=== PATIENT | female | born 1985 | race Caucasian/White ===

== ENCOUNTER → 2016-11-17 | Outpatient (CLI) | payer BC ==
[~2016-11-17] MED LIST: AZEL15GE TOP; BCPILLS PO; FLUO20CA35 PO; LEVO75TA PO; SULF5LOT2 TOP; TRIA3AER NAE
== END | disposition home or self-care (01) ==
LOC: C.LABSPEC 13:26
PROVIDERS: ATTEND Obstetrics & Gynecology
DX: B37.3 Candidiasis of vulva and vagina (principal)

== ENCOUNTER → 2016-11-24 | Outpatient (CLI) | payer BC | END | disposition home or self-care (01) | LOC: C.LAB1850 17:04 | PROVIDERS: ATTEND Obstetrics & Gynecology | DX: E03.9 Hypothyroidism, unspecified (principal) ==

== ENCOUNTER → 2016-11-24 | Outpatient (CLI) | payer BC | END | disposition home or self-care (01) | LOC: C.PAPS 12:17 | PROVIDERS: ATTEND Obstetrics & Gynecology | DX: Z01.419 Encounter for gynecological examination (general) (routine) without abnormal findings (principal) ==

== ENCOUNTER → 2017-03-28 | Outpatient (CLI) | payer BC ==
[2017-03-28 17:54] LABS: BLOOD UREA NITROGEN 13 mg/dl (7-18); BUN/CREATININE RATIO 20.3 (10-20); CALCIUM 9.2 mg/dl (8.5-10.1); CARBON DIOXIDE 28 mmol/L (21-32); CHLORIDE 106 mmol/L (98-107); CREATININE 0.64 mg/dl (0.60-1.20); GLUCOSE 83 mg/dl (70-99); POTASSIUM 3.8 mmol/L (3.5-5.1); SODIUM 139 mmol/L (136-145)
== END | disposition home or self-care (01) ==
LOC: C.LAB1850 16:11
PROVIDERS: ATTEND Internal Medicine
DX: E03.9 Hypothyroidism, unspecified (principal); L70.9 Acne, unspecified

== ENCOUNTER → 2017-05-29 | Outpatient (CLI) | payer BC ==
--- NOTE | 2017-05-29 17:42 | DIAGNOSTIC IMAGING REPORT ---
CHEST 2 VIEWS ROUTINE CLINICAL HISTORY: 32 years-old Female presenting with fever, shortness of breath, 6 weeks . TECHNIQUE: PA and lateral views of the chest were obtained. COMPARISON: 01/20/2014. FINDINGS: Cardiomediastinal silhouette normal. Lungs and pleural spaces clear. Osseous structures normal. Upper abdomen normal. IMPRESSION: 1. No acute cardiopulmonary disease. Electronically signed by: Alfredito Escobar M.D. 05/29/2017 5:41 PM Dictated Date/Time: 05/29/2017 5:40 PM
== END | disposition home or self-care (01) ==
LOC: C.RAD1850 16:37
PROVIDERS: ATTEND Internal Medicine
DX: O99.511 Diseases of the respiratory system complicating pregnancy, first trimester (principal); R06.02 Shortness of breath; R50.9 Fever, unspecified

== ENCOUNTER 2017-05-30 19:39 | Emergency (ER) | payer BC ==
[~2017-05-30] VITALS: Ht 152.4 cm; Wt 57.0 kg
[~2017-05-30 19:39] MED LIST changes: -FLUO20CA35 PO
[2017-05-30 19:43] VITALS: Ht 152.4 cm; Wt 57.0 kg
[2017-05-30] MEDS ORDERED: FLUO20CA35 PO (20:09)
[2017-05-30] MEDS ORDERED: DiphenhydrAMINE HCL 50 MG/ML VIAL IV STA (20:10)
[2017-05-30] MEDS ORDERED: SODIUM CHLORIDE 0.9% 1000ML 1,000 ML IV STA ×2 (20:10→21:48)
[2017-05-30] MEDS ORDERED: METOCLOPRAMIDE HCL INJ 5 MG/ML 2 ML VIAL IV STA (20:10)
[2017-05-30 20:56] LABS: BASO % 0.2 %; BASO ABS # 0.01 K/uL (0-0.2); COMPLETE YES; HEMATOCRIT 36.9 % (37-47); IG% 0.2 %; LYMPH % 10.6 %; LYMPH ABS # 0.66 K/uL (1.2-3.4); MEAN CELL VOLUME 91.8 fL (80-100); MEAN CORPUSCULAR HEMOGLOBIN 32.6 pg (25-34); MEAN CORPUSCULAR HGB CONC 35.5 g/dl (32-36); MEAN PLATELET VOLUME 9.5 fL (7.4-10.4); MONO % 7.4 %; NEUT % 81.6 %; PLATELET COUNT 246 K/uL (130-400); RED BLOOD COUNT 4.02 M/uL (4.2-5.4); WHITE BLOOD COUNT 6.24 K/uL (4.8-10.8)
--- NOTE | 2017-05-30 21:01 | EMERGENCY ROOM VISIT NOTE ---
History Report prepared by Ernesto: Filiberto Nolasco Under the Supervision of: Dr. Jana Martino D.O. First contact with patient: 19:47 Chief Complaint: HEADACHE Stated Complaint: PEÑA,CILLS,FEVER,DIZINESS,WEAK,FATIGUE,ACHES History of Present Illness The patient is a 32 year old female who presents to the Emergency Room with complaints of a constant, frontal, headache beginning four days ago. The patient states that she worked a seven day stretch last week and just found out that she is with her first child. She reports that she thought the symptoms were from the . The patient notes that she has a history of migraines in the same location of her current headache that typically end with vomiting. She states that she typically takes Advil and drinks diet coke, but she is not able to because she is . The patient reports that she developed a subjective fever over the weekend, and when she took her temperature yesterday, it was 101.7 degrees F. She notes that she has also been experiencing chills and hot flashes that have caused her to be nauseous and fatigued. The patient reports that she has also experienced weakness, muscle aches, dizziness, shortness of breath, and a productive cough. The patient states that she was evaluated yesterday and was told that her chest x-ray and flu swab were negative. She reports that she was placed on a Z-pack and amoxicillin for possible bronchitis. The patient notes that she has been trying to drink smoothies, water, and willie wong. She states that she abruptly stopped taking Zyrtec D when she found out she was . The patient reports that she does not know if this caused her symptoms. She notes that she worked at [employer] and everyone is sick. The patient denies vaginal discharge, changes in urine, changes in stool, rashes, and vomiting. Source of History: patient Onset: four days ago Position: head (frontal) Quality: ache Timing: constant Associated Symptoms: + chills, + cough, + SOB, + nausea, + fatigue, + weakness, No vomiting, No rash Note: Associated symptoms: hot flashes, muscle aches, dizziness Denies: vaginal discharge, changes in urine, changes in stool Review of Systems See HPI for pertinent positives & negatives. A total of 10 systems reviewed and were otherwise negative. Past Medical & Surgical Medical Problems: (1) Hypothyroidism Nos (2) IBS (irritable bowel syndrome) (3) Seasonal allergies Family History Patient reports no known family medical history. Social History Smoking Status: Never Smoker Alcohol Use: occasionally Marital Status: Housing Status: lives with family Occupation Status: employed Current/Historical Medications Scheduled Fluoxetine (Prozac), 20 MG PO QAM Levothyroxine Sodium (Synthroid), 75 MCG PO DAILY Allergies Coded Allergies: No Known Allergies (Unverified , 05/30/17) Physical Exam Vital Signs Date Time Temp Pulse Resp B/P (MAP) Pulse Ox O2 Delivery O2 Flow Rate FiO2 05/30/17 22:43 37.8 84 16 100/62 98 Room Air 05/30/17 21:44 38.2 71 18 94/50 98 Room Air 05/30/17 19:43 39.3 96 18 119/76 97 Room Air Physical Exam GENERAL: alert, anxious appearing, well nourished, no distress, non-toxic EYE EXAM: normal conjunctiva, PERRL and EOM's grossly intact OROPHARYNX: no exudate, no erythema, lips, buccal mucosa, and tongue normal and mucous membranes are moist NECK: supple, no nuchal rigidity, no adenopathy, non-tender LUNGS: Clear to auscultation. Normal chest wall mechanics HEART: no murmurs, S1 normal and S2 normal ABDOMEN: abdomen soft, non-tender, normo-active bowel sounds, no masses, no rebound or guarding. BACK: Back is symmetrical on inspection and there is no deformity, no midline tenderness, no CVA tenderness. SKIN: no rashes and no bruising UPPER EXTREMITIES: upper extremities are grossly normal. LOWER EXTREMITIES: No pitting edema. NEURO EXAM: Normal sensorium, cranial nerves II-XII grossly intact, normal speech, no gross weakness of arms, no gross weakness of legs. Medical Decision & Procedures Laboratory Results 05/30/17 20:25 Red Blood Count 4.02, Mean Corpuscular Volume 91.8, Mean Corpuscular Hemoglobin 32.6, Mean Corpuscular Hemoglobin Concent 35.5, Mean Platelet Volume 9.5, Neutrophils (%) (Auto) 81.6, Lymphocytes (%) (Auto) 10.6, Monocytes (%) (Auto) 7.4, Eosinophils (%) (Auto) 0.0, Basophils (%) (Auto) 0.2, Neutrophils # (Auto) 5.10, Lymphocytes # (Auto) 0.66, Monocytes # (Auto) 0.46, Eosinophils # (Auto) 0.00, Basophils # (Auto) 0.01 05/30/17 20:25 Test 05/30/17 20:25 05/30/17 22:35 White Blood Count 6.24 K/uL (4.8-10.8) Red Blood Count 4.02 M/uL (4.2-5.4) Hemoglobin 13.1 g/dL (12.0-16.0) Hematocrit 36.9 % (37-47) Mean Corpuscular Volume 91.8 fL (80-100) Mean Corpuscular Hemoglobin 32.6 pg (25-34) Mean Corpuscular Hemoglobin Concent 35.5 g/dl (32-36) Platelet Count 246 K/uL (130-400) Mean Platelet Volume 9.5 fL (7.4-10.4) Neutrophils (%) (Auto) 81.6 % Lymphocytes (%) (Auto) 10.6 % Monocytes (%) (Auto) 7.4 % Eosinophils (%) (Auto) 0.0 % Basophils (%) (Auto) 0.2 % Neutrophils # (Auto) 5.10 K/uL (1.4-6.5) Lymphocytes # (Auto) 0.66 K/uL (1.2-3.4) Monocytes # (Auto) 0.46 K/uL (0.11-0.59) Eosinophils # (Auto) 0.00 K/uL (0-0.5) Basophils # (Auto) 0.01 K/uL (0-0.2) RDW Standard Deviation 43.4 fL (36.4-46.3) RDW Coefficient of Variation 12.9 % (11.5-14.5) Immature Granulocyte % (Auto) 0.2 % Immature Granulocyte # (Auto) 0.01 K/uL (0.00-0.02) Anion Gap 8.0 mmol/L (3-11) Est Creatinine Clear Calc Drug Dose 105.5 ml/min Estimated GFR () 138.8 Estimated GFR (Non- 119.8 BUN/Creatinine Ratio 13.2 (10-20) Calcium Level 8.5 mg/dl (8.5-10.1) Magnesium Level 2.3 mg/dl (1.8-2.4) Total Bilirubin 0.6 mg/dl (0.2-1) Aspartate Amino Transf (AST/SGOT) 23 U/L (15-37) Alanine Aminotransferase (ALT/SGPT) 26 U/L (12-78) Alkaline Phosphatase 60 U/L (45-117) Total Protein 7.1 gm/dl (6.4-8.2) Albumin 3.4 gm/dl (3.4-5.0) Globulin 3.7 gm/dl (2.5-4.0) Albumin/Globulin Ratio 0.9 (0.9-2) Human Chorionic Gonadotropin, Quant 5029 mIU/mL Urine Color YELLOW Urine Appearance CLEAR (CLEAR) Urine pH 6.5 (4.5-7.5) Urine Specific [place] 1.032 (1.000-1.030) Urine Protein 1+ (NEG) Urine Glucose (UA) NEG (NEG) Urine Ketones 1+ (NEG) Urine Occult Blood NEG (NEG) Urine Nitrite NEG (NEG) Urine Bilirubin NEG (NEG) Urine Urobilinogen NEG (NEG) Urine Leukocyte Esterase NEG (NEG) Urine WBC (Auto) 1-5 /hpf (0-5) Urine RBC (Auto) 0-4 /hpf (0-4) Urine Hyaline Casts (Auto) 1-5 /lpf (0-5) Urine Epithelial Cells (Auto) >30 /lpf (0-5) Urine Bacteria (Auto) NEG (NEG) Laboratory results per my review. Medications Administered Medications (Trade) Dose Ordered Sig/Binta Route Start Time Stop Time Status Last Admin Dose Admin Sodium Chloride 1,000 ml @ 999 mls/hr Q1H1M STAT IV 05/30/17 20:10 05/30/17 21:10 DC 05/30/17 20:31 999 MLS/HR Metoclopramide HCl (Reglan Inj) 10 mg NOW STAT IV 05/30/17 20:10 05/30/17 20:12 DC 05/30/17 20:28 10 MG Diphenhydramine HCl (Benadryl Inj) 12.5 mg NOW STAT IV 05/30/17 20:10 05/30/17 20:12 DC 05/30/17 20:29 12.5 MG Acetaminophen (Tylenol Tab) 1,000 mg STK-MED ONCE PO 05/30/17 21:43 05/30/17 21:44 DC 05/30/17 21:50 1,000 MG ED Course 1954: The patient was evaluated in room C11B. A complete history and physical exam was performed. 2009: Ordered Diphenhydramine HCl 12.5mg IV, Metoclopramide HCl 10mg IV, Sodium Chloride 1000 ml @ 999 mls/hr IV 2119: I reevaluated the patient and updated her of her exam findings. She just received her medication. 2142: Ordered Acetaminophen 1000mg PO 2146: Bedside abdominal ultrasound showed: thickened uterus, questionable gestational sack. I discussed with the patient an optional formal ultrasound and possibly transvaginal ultrasound. She declined and wishes to follow up with [facility]. 2147: Ordered Sodium Chloride 1000 ml @ 999 mls/hr IV 2246: Upon reevaluation, the patient is feeling better. I offered to perform an LP to rule out meningitis. She declined. I discussed symptoms to look for and return if present. I discussed the need for hydration, vitamins, and a close follow up with [facility]. I also discussed what medications can and cannot be used during . All other questions were answered at bedside. I discussed the findings and the treatment plan with the patient. She verbalizes agreement and understanding. The patient was discharged home. Medical Decision Differential Diagnosis includes but is not limited to headache, tension headache , cluster headache, migraine, subarachnoid hemorrhage, meningitis, mass, central venous thrombus, concussion, trauma and epidural/subdural hemorrhage. Pt well appearing here despite complaints, and felt improved after meds and began asking to go home. Discussed ddx. Likely viral illness and dehydration led to worsening migraine and pt now unable to take NSAIDS due to . Pt with no other focal neuro symptoms. Labs reassuring. Discussed risk of meningitis given presentation and offered LP, pt declined. Discussed close f/u , sx to return for, she verbalized understanding and was agreeable with plan. Discussed vitamins, hydration, safe OTC meds in . Doubt cvs thrombus. Pt had outpt cxr and flu swab which she stated was were reported to her as negative. Pt deferred US here to confirm IUP, no sx at this time to suggest occult ob problem. Discussed cannot r/o ectopic, she verbalized understanding. Medication Reconcilliation Current Medication List: was personally reviewed by me Blood Pressure Screening Patient's blood pressure: Normal blood pressure Impression Primary Impression: Fever Additional Impressions: Myalgia Headache Scribe Attestation The scribe's documentation has been prepared under my direction and personally reviewed by me in its entirety. I confirm that the note above accurately reflects all work, treatment, procedures, and medical decision making performed by me. Departure Information Dispostion Home / Self-Care Referrals RV. Carter MD (PCP) Forms HOME CARE DOCUMENTATION FORM, IMPORTANT VISIT INFORMATION Patient Instructions My [facility] Additional Instructions Please use Tylenol as needed for headache and try to stay well-hydrated. Please follow up with [facility] as soon as possible. Please continue the antibiotics were previously prescribed. If you have any worsening fevers, worsening headache, vomiting, abdominal pain, vaginal discharge or bleeding, or you've any other new concerns please return to ER immediately. Problem Qualifiers Primary Impression: Fever Fever type: unspecified Qualified Codes: R50.9 - Fever, unspecified Additional Impressions: Weeks of gestation: less than 8 weeks Qualified Codes: Z3A.01 - Less than 8 weeks gestation of Headache Headache type: unspecified Headache chronicity pattern: episodic headache Intractability: not intractable Qualified Codes: R51 - Headache
[2017-05-30 21:07] LABS: BUN/CREATININE RATIO 13.2 (10-20); CALCIUM 8.5 mg/dl (8.5-10.1); CREATININE 0.6 mg/dl (0.60-1.20); MAGNESIUM 2.3 mg/dl (1.8-2.4); POTASSIUM 3.3 mmol/L (3.5-5.1)
[2017-05-30 21:10] LABS: ALB/GLOB RATIO 0.9 (0.9-2)
[2017-05-30] MEDS ORDERED: ACETAMINOPHEN 500 MG TAB PO ONE (21:43)
[2017-05-30 22:43] VITALS: BP 100/62; PULSE 84; TEMP 37.8; O2SAT 98
[2017-05-30 23:10] LABS: URINE APPEARANCE CLEAR (CLEAR); URINE BILIRUBIN NEG (NEG); URINE COLOR YELLOW; URINE EPITHELIAL CELL AUTO >30 /lpf (0-5); URINE NITRITE NEG (NEG); URINE PH 6.5 (4.5-7.5); URINE SPECIFIC GRAVITY 1.032 (1.000-1.030); UROBILINOGEN NEG (NEG); ZZUR CULT IF INDIC CLEAN CATCH NO
[2017-05-30 23:11] LABS: MANUAL MICROSCOPIC REQUIRED? NO; REVIEW REQ? NO
== END 2017-05-30 23:10 | disposition home or self-care (01) ==
LOC: C.EDB 19:40 → C.EDC 23:10
DX: O26.891 Other specified pregnancy related conditions, first trimester (principal); O99.281 Endocrine, nutritional and metabolic diseases complicating pregnancy, first trimester; O99.611 Diseases of the digestive system complicating pregnancy, first trimester; O99.511 Diseases of the respiratory system complicating pregnancy, first trimester; Z3A.01 Less than 8 weeks gestation of pregnancy; R50.9 Fever, unspecified; R51 Headache; M79.1 Myalgia; E03.9 Hypothyroidism, unspecified; K58.9 Irritable bowel syndrome, unspecified; J30.2 Other seasonal allergic rhinitis; Z79.899 Other long term (current) drug therapy

== ENCOUNTER → 2017-06-21 | Outpatient (CLI) | payer BC ==
[~2017-06-21] MED LIST changes: -AZEL15GE TOP; -BCPILLS PO; +FLUO20CA35 PO; -SULF5LOT2 TOP; -TRIA3AER NAE
[2017-06-21 11:21] LABS: URINE APPEARANCE CLEAR (CLEAR); URINE BILIRUBIN NEG (NEG); URINE COLOR YELLOW; URINE NITRITE NEG (NEG); URINE PH 7.5 (4.5-7.5); URINE SPECIFIC GRAVITY 1.013 (1.000-1.030); UROBILINOGEN NEG (NEG)
[2017-06-21 11:26] LABS: MANUAL MICROSCOPIC REQUIRED? NO; REVIEW REQ? NO
== END | disposition home or self-care (01) ==
LOC: C.LABSPEC 10:53
PROVIDERS: ATTEND Obstetrics & Gynecology
DX: O99.281 Endocrine, nutritional and metabolic diseases complicating pregnancy, first trimester (principal)

== ENCOUNTER → 2017-06-27 | Outpatient (CLI) | payer BC ==
[2017-06-27 17:43] LABS: BASO % 0.5 %; BASO ABS # 0.04 K/uL (0-0.2); COMPLETE YES; EOS % 4.4 %; IG% 0.1 %; LYMPH % 29.4 %; LYMPH ABS # 2.19 K/uL (1.2-3.4); MEAN CORPUSCULAR HEMOGLOBIN 31.3 pg (25-34); MEAN PLATELET VOLUME 9.4 fL (7.4-10.4); MONO % 8.4 %; NEUT % 57.2 %; PLATELET COUNT 345 K/uL (130-400); RED BLOOD COUNT 4.35 M/uL (4.2-5.4); WHITE BLOOD COUNT 7.46 K/uL (4.8-10.8)
== END | disposition home or self-care (01) ==
LOC: C.LAB1850 16:31
PROVIDERS: ATTEND Obstetrics & Gynecology
DX: O99.281 Endocrine, nutritional and metabolic diseases complicating pregnancy, first trimester (principal); O02.1 Missed abortion; Z3A.00 Weeks of gestation of pregnancy not specified

== ENCOUNTER → 2017-07-20 | Outpatient (CLI) | payer BC ==
[2017-07-20 10:22] LABS: CHOLESTEROL/HDL RATIO 3.4; THYROID STIMULATING HORMONE 0.909 uIu/ml (0.300-4.500)
== END | disposition home or self-care (01) ==
LOC: C.LAB1850 08:48
PROVIDERS: ATTEND Internal Medicine
DX: E03.9 Hypothyroidism, unspecified (principal); Z13.220 Encounter for screening for lipoid disorders; O02.1 Missed abortion

== ENCOUNTER → 2017-12-11 | Outpatient (CLI) | payer BC | END | disposition home or self-care (01) | LOC: C.LAB1850 16:57 | PROVIDERS: ATTEND Obstetrics & Gynecology | DX: O09.299 Supervision of pregnancy with other poor reproductive or obstetric history, unspecified trimester (principal); Z3A.00 Weeks of gestation of pregnancy not specified ==

== ENCOUNTER → 2017-12-13 | Outpatient (CLI) | payer BC | END | disposition home or self-care (01) | LOC: C.LAB1850 17:08 | PROVIDERS: ATTEND Obstetrics & Gynecology | DX: O09.299 Supervision of pregnancy with other poor reproductive or obstetric history, unspecified trimester (principal); Z3A.00 Weeks of gestation of pregnancy not specified ==

== ENCOUNTER → 2017-12-20 | Outpatient (CLI) | payer BC | END | disposition home or self-care (01) | LOC: C.LABSPEC 13:24 | PROVIDERS: ATTEND Obstetrics & Gynecology | DX: O09.291 Supervision of pregnancy with other poor reproductive or obstetric history, first trimester (principal); Z3A.00 Weeks of gestation of pregnancy not specified ==

== ENCOUNTER → 2017-12-29 | Outpatient (CLI) | payer BC ==
[2017-12-29 16:34] LABS: BASO % 0.5 %; BASO ABS # 0.05 K/uL (0-0.2); EOS % 1.9 %; HEMATOCRIT 38.2 % (37-47); HEMOGLOBIN 13.3 g/dL (12.0-16.0); IG# 0.05 K/uL (0.00-0.02); LYMPH % 18.7 %; LYMPH ABS # 2.01 K/uL (1.2-3.4); MEAN CELL VOLUME 91.2 fL (80-100); MEAN CORPUSCULAR HEMOGLOBIN 31.7 pg (25-34); MEAN CORPUSCULAR HGB CONC 34.8 g/dl (32-36); MEAN PLATELET VOLUME 9.5 fL (7.4-10.4); MONO % 6.3 %; MONO ABS # 0.68 K/uL (0.11-0.59); NEUT % 72.1 %; NEUT ABS # 7.74 K/uL (1.4-6.5); PLATELET COUNT 316 K/uL (130-400); RED CELL DISTRIBUTION WIDTH CV 13.2 % (11.5-14.5); WHITE BLOOD COUNT 10.73 K/uL (4.8-10.8)
== END | disposition home or self-care (01) ==
LOC: C.LAB1850 15:29
PROVIDERS: ATTEND Obstetrics & Gynecology
DX: E03.9 Hypothyroidism, unspecified (principal); O09.291 Supervision of pregnancy with other poor reproductive or obstetric history, first trimester; Z3A.00 Weeks of gestation of pregnancy not specified

== ENCOUNTER → 2018-01-26 | Outpatient (CLI) | payer BC | END | disposition home or self-care (01) | LOC: C.LAB1850 14:59 | PROVIDERS: ATTEND Internal Medicine | DX: E03.9 Hypothyroidism, unspecified (principal) ==

== ENCOUNTER → 2018-04-19 | Outpatient (CLI) | payer BC | END | disposition home or self-care (01) | LOC: C.LAB1850 16:52 | PROVIDERS: ATTEND Internal Medicine | DX: O99.283 Endocrine, nutritional and metabolic diseases complicating pregnancy, third trimester (principal) ==

== ENCOUNTER 2020-10-30 15:48 | Observation (INO) ==
[2020-10-30] MEDS ORDERED: LACTATED RINGER'S 1,000 ML IV ONE (16:38)
[2020-10-30 16:58] LABS: Hematocrit (blood only) 38.9 % (37-47); Hemoglobin 13.4 g/dL (12.0-16.0); Mean Corpuscular Hemoglobin 31.2 pg (25-34); Mean Corpuscular Hgb Conc 34.4 g/dL (32-36); Mean Corpuscular Volume 90.7 fL (80-100); Mean Platelet Volume 10.8 fL (7.4-10.4); Platelet Count 211 K/uL (130-400); RDW Coefficient of Variation 14.2 % (11.5-14.5); RDW Standard Deviation 46.5 fL (36.4-46.3); Red Blood Count 4.29 M/uL (4.2-5.4); White Blood Count 11.05 K/uL (4.8-10.8)
[2020-10-30] MEDS: LACTATED RINGER'S 1,000 ML IV PRN (20:00)
--- NOTE | 2020-10-30 20:53 | History & Physical Report ---
Date of Service October 30, 2020 Assessment & Plan (1) Threatened labor, antepartum: Upon arrival, patient's ctx were Q 2 min. Cervix exam was 3-4/80/-2. Provided IV fluids and monitoring. After 2 hours, cervix re-exam was the same. Ctx spaced to Q 2-6 min. At that time, I offered patient that since she did not make cervical change, she could opt to be discharged to home, or could continue monitoring overnight. Since she lives >30min away, she elected to stay for continued monitoring overnight. Will remain NPO in case this becomes active labor and is needed. Will plan to recheck cervix in AM. Patient is agreeable. Admission and Anticipated Discharge Date Admission Date: October 30, 2020 History of Present Illness Chief Complaint: contractions Primary Care Provider: Justice Aguiar MD 35yo @ 34 10/18. Presented to office today for routine NST for chronic abruption. Was found to have regular ctx, Q 2-3 min, with cervix exam 3cm. Directed to L&D for further eval. Upon arrival to L&D, patient states she has been feeling some abdominal tightening, but did not realize these are contractions. No vaginal bleeding. + movement. No leaking fluid. Spent the day today out shopping. complicated by: Hypothyroid *Check TFTs Q4wks(recurring order) Prior section *desires repeat c/s C/S WITH TUBAL SCHEDULED FOR 11/27/[address] DRISS WHITFIELD TEST ON 11/23 Recurrent Vaginal bleeding in /mucus--given course of steroids, growth u/s planned (see notes from 08/20 office and L&D) AMA Weekly NST's @ 36 weeks Depression on meds * sees [employer] Declines flu shot 06/17/20 OC ?Chronic Abruption *Growth Q 4wks @ 28wks *weekly NST's @ 32wks *deliver @ 39wks. - Non compliant on 2hr GTT Allergies Allergy/AdvReac Type Severity Reaction Status Date / Time latex Allergy Mild Rash Verified 10/30/20 14:51 No Known Drug Allergies Allergy Mild None Verified 10/30/20 14:51 soy AdvReac GI upset Verified 10/30/20 14:51 Home Medications Medication Instructions Recorded Confirmed Type sulfacetamide sodium (acne) 10 % 1 appln TOP DAILY ml 07/31/19 10/30/20 History lotion (suspension) prenat.vits,blaze,[id number] 1 tab PO DAILY 04/17/20 10/30/20 History sertraline 100 mg tablet 200 mg PO DAILY tab 04/17/20 10/30/20 History levothyroxine 125 mcg tablet 125 mcg PO DAILY #30 tab 07/20/20 10/30/20 Rx Patient History Medical History (Updated 08/23/20 @ 21:22 by Florin Cyr MD) Encounter for annual routine gynecological examination Health care maintenance History of varicella Hypothyroidism Migraine Spontaneous (07/06/17) Thoracic back pain Surgical History S/P section (~07/26/18) elective [place] teeth extracted Family History Grandmother Cancer Stroke Breast cancer Myocardial infarction Congestive heart failure Family/Other Cancer Grandfather Diabetes mellitus type 1 Bipolar disorder Aunt Cervical cancer Uncle Alcohol abuse Mother Hypertension Grandmother Hypertension Father Asthma Thyroid disease Autoimmune disorder Denies family history of Ovarian cancer Cardiac disorder Colorectal cancer Social History (Updated 04/17/20 @ 10:05 by Mary Gallardo) Smoking Status: Never smoker Second Hand Exposure: No; Hx Alcohol Use: No Hx Substance Use: No Preferred Language: Nepalese Communication Ability: Effective Ore Washer Required: No Beliefs That Will Affect Care: None marital status: marital status details: Josué Fernando (39) [phone] Current Living Situation: Spouse Current Living Situation Comment: spouse, son current occupational status: employed current occupation: farmhopping Other Information That Helps Us Care for You: No Feels Safe at Home: Yes Safety Concerns: Feels Safe At This Time Assistive Devices: Contacts Review of Systems All systems reviewed & are unremarkable except as noted in HPI & below Physical Exam Physical Exam: Cervix exam 3-4/80/-2. Constitutional: WD/WN, vitals as above Respiratory: normal respiratory effort, lungs clear to auscultation no respiratory distress Cardiovascular: Rate/Rhythm: regular rate and regular rhythm Gastrointestinal (Abdomen): Inspection/Auscultation: abdomen normal to inspection Percussion/Palpation: abdomen soft; abdomen nontender Gravid. No s/s chorio or abruption. Skin: no rashes, warm and dry Psychiatric: A+Ox3, euthymic affect Results & Data ([facility]) Vital Signs (Past 12 Hours) Vital Signs Temp Pulse Resp BP 10/30/20 19:11 36.6 C 68 18 111/71 10/30/20 16:15 36.8 C 16 10/30/20 16:01 78 123/77 Monitoring External Monitor FHT Cat 1 Tocodynamometer Q 2-6 Coding Level of Care Code 45247 OBS Care - Level 2 Diagnoses Threatened labor, antepartum O47.00
[2020-10-31] MEDS: LACTATED RINGER'S 1,000 ML IV PRN (04:15)
--- NOTE | 2020-10-31 07:18 | Obstetrical Progress Note ---
Date of Service October 31, 2020 Assessment & Plan Admission and Anticipated Discharge Date Admission Date: October 30, 2020 Subjective Patient slept through the night; contractions mostly stopped. This morning, feeling well, not really feeling ctx. FHT Cat 1. [place]: rare. Cervix recheck - unchanged. I discussed s/s labor with patient - she is to return immediately if contractions increase, heavy bleeding, ROM, decreased movement, or any other symptoms.She is agreeable for discharge home. Followup this week in office. Results & Data ([facility]) Vital Signs (Past 12 Hours) Vital Signs Temp Pulse Resp BP 10/31/20 03:01 36.6 C 71 16 115/50 L 10/30/20 22:39 36.4 C L 69 18 114/66 PG Care Time/CCT Total # of Minutes Spent Total Time Spent with Patient: Total time spent is greater than 50% in coordination of care (as documented) at patient's floor/unit and/or counseling patient: Coding Level of Care Code None
--- NOTE | 2020-11-04 13:14 | Discharge Summary ---
Date of Service November 04, 2020 Admission HPI Per Admitting Provider 35yo @ 34 10/18. Presented to office today for routine NST for chronic abruption. Was found to have regular ctx, Q 2-3 min, with cervix exam 3cm. Directed to L&D for further eval. Upon arrival to L&D, patient states she has been feeling some abdominal tightening, but did not realize these are contractions. No vaginal bleeding. + movement. No leaking fluid. Spent the day today out shopping. complicated by: Hypothyroid *Check TFTs Q4wks(recurring order) Prior section *desires repeat c/s C/S WITH TUBAL SCHEDULED FOR 11/27/[address] DRISS WHITFIELD TEST ON 11/23 Recurrent Vaginal bleeding in /mucus--given course of steroids, growth u/s planned (see notes from 08/20 office and L&D) AMA Weekly NST's @ 36 weeks Depression on meds * sees [employer] Declines flu shot 06/17/20 OC ?Chronic Abruption *Growth Q 4wks @ 28wks *weekly NST's @ 32wks *deliver @ 39wks. - Non compliant on 2hr GTT Hospital Course (1) Threatened labor, antepartum: Patient presented with regular contractions, was monitored overnight for s/s labor, cervix exam remained unchanged, discharged home in AM. Coding Level of Care Code None Diagnoses Threatened labor, antepartum O47.00
== END 2020-10-31 07:55 | disposition home or self-care (01) ==
LOC: 4S1 15:48 → OPB 15:48